=== PATIENT | female | born 1960 | race Caucasian/White ===

== ENCOUNTER → 2022-05-18 | Outpatient (CLI) | payer OTHER, SELFPAY ==
[2022-05-18 12:42] LABS: Erythrocyte Sedimentation Rate 8 mm/hr (0-30)
[2022-05-18 12:45] LABS: Absolute Lymphocyte Count 1.66 X10^3/uL (0.83-4.51); Absolute Neutrophil Count 2.3 X10^3/uL (2.0-7.7); Basophil# 0.03 X10^3/uL; Basophil% 0.6 % (0-1); Eosinophil# 0.15 X10^3/uL; Eosinophils% 3.2 % (0-5); Hematocrit 38.7 % (37-47); Hemoglobin 12.5 g/dL (12.0-15.0); Lymphocyte # 1.66 X10^3/ul (0.83-4.51); Lymphocyte % 35.3 % (19-41); Mean Corp Hgb Conc 32.3 g/dL (32-36); Monocyte% 10.6 % (0-10); NRBC Flagged by Analyzer 0 % (0-5); Neutrophil # 2.34 X10^3/uL (2.7-7.7); Neutrophil % 49.9 % (47-70); Platelet Count 253 K/mm3 (150-450); RBC Distribution Width CV 12.7 % (11.6-14.6); RBC Distribution Width SD 43.2 fl (35.1-43.9); Red Blood Count 4.16 M/mm3 (4.2-5.4); White Blood Count 4.7 K/mm3 (4.4-11.0)
[2022-05-19 10:32] LABS: ANTINUCLEAR ANTIBODIES DIRECT Negative (Negative)
[2022-05-24 14:08] LABS: Complement C3 176 mg/dL (82-167); Dilute Russell Viper Venom 37.4 sec (0.0-47.0); PTT-LA 30.3 sec (0.0-51.9); Protein C Antigen 124 % (60-150); Protein S, Free 119 % (61-136); Thrombin Time 19.1 sec (0.0-23.0); dPT Confirm Ratio 1.04 Ratio (0.00-1.34)
[2022-05-24 19:50] LABS: Anti-Cardiolipin Ab, IgA, Qn < 9 APL U/mL (0-11); Anti-Cardiolipin Ab, IgG, Qn 15 GPL U/mL (0-14); Anti-Cardiolipin Ab, IgM, Qn 13 MPL U/mL (0-12); Anti-Thrombin 3 AG, Immunol 83 % (72-124); Antithrombin 3 Function 103 % (75-135); Complement CH50 > 60 U/mL (>41); Interpretation Comment: (.); Protein C, Functional 160 % (73-180); Protein S, Funtional 103 % (63-140); Protein S, Total 125 % (60-150)
== END | disposition home or self-care (01) ==
LOC: MTLAB 09:16
PROVIDERS: PCP Family Medicine; Referring Provider Psychiatry & Neurology Neurology; Visit Provider Psychiatry & Neurology Neurology
DX: I67.9 Cerebrovascular disease, unspecified (principal)
CPT/HCPCS: 36415; 81240; 81241; 85025; 85300; 85301; 85302; 85303; 85305; 85306; 85652; 86038; 86147; 86160; 86162; 86225; 86235

== ENCOUNTER → 2022-05-28 | Outpatient (CLI) | payer OTHER, SELFPAY ==
--- NOTE | 2022-05-28 15:11 | MRI_ITS ---
STUDY: MRA OF THE HEAD WITHOUT CONTRAST REASON FOR EXAM: Female, 61 years old. CVA vs demyelinating disease vs vascular malformat TECHNIQUE: 3-D newa-hh-jluwnq (TOF) imaging was performed with MIPs. The study was performed unenhanced. COMPARISON: None. FINDINGS: Normal bilateral petrous and cavernous carotid arteries. Normal anterior cerebral arteries with trifurcation (normal variant) - three A2 segments. Normal middle cerebral arteries. Normal right posterior communicating artery (PCOM). Normal left posterior communicating artery (PCOM). Normal bilateral vertebral arteries. Normal basilar artery with a normal basilar bifurcation. The visualized bilateral superior cerebellar (SCA) arteries are normal. Normal bilateral P1, P2 and visualized P3 segments of the posterior cerebral arteries. There is no demonstrated aneurysm of the [place] of [place]. No high-grade stenosis or large vessel occlusion. MRI/MRA Head ONLY without Contrast IMPRESSION: Normal MRA of the head. Electronically Signed: Celeste Reyes MD at 22:18 EDT Reading Location ID and State: [id number] / Tel , Service support ,
--- NOTE | 2022-05-28 15:11 | MRI_ITS ---
STUDY: MRI BRAIN WITH AND WITHOUT CONTRAST REASON FOR EXAM: Female, 61 years old. CVA vs demyelinating disease vs vascular malformat TECHNIQUE: Standardized multiplanar fat and water weighted pulse sequences were obtained. IV 20ml dotarem was administered for the contrast portion of the examination. COMPARISON: None. FINDINGS: No intracranial mass, mass effect or midline shift. No enhancing lesion. No hemorrhage, territorial infarct or acute ischemia. Normal size of the ventricles and extra-axial spaces for the patient''s age. There are a limited number of small white matter hyperintensities, distributed throughout the deep white matter tracts of the cerebral hemispheres. These are nonspecific but consistent with mild chronic white matter ischemic changes. Multiple sclerosis is an additional consideration. Normal bilateral basal ganglia. Normal thalami. There is no extra-axial fluid accumulation. Normal flow voids within the major intracranial circulation suggesting patency by spin echo criteria. There is no enhancing intra-axial or extra-axial abnormality. Normal sella turcica, pituitary gland, infundibular stalk, optic chiasm and hypothalamus. Normal midbrain, kristina and medulla. Normal cerebellum. Normal basal cisterns. Normal bilateral temporal bones. Normal bilateral internal auditory canals. Mild mucosal thickening in the left maxillary sinus. Normal calvarium and skull base. Normal visualized soft tissue structures. MRI/Brain W/WO Contrast IMPRESSION: No acute findings. Mild white matter changes, nonspecific. These are most likely due to microvascular ischemia. Demyelination is less likely but not excluded. Electronically Signed: Celeste Reyes MD at 21:57 EDT Reading Location ID and State: [id number] / Tel , Service support ,
== END | disposition home or self-care (01) ==
LOC: MRI 15:01
PROVIDERS: PCP Family Medicine; Referring Provider Psychiatry & Neurology Neurology; Visit Provider Psychiatry & Neurology Neurology
DX: I67.9 Cerebrovascular disease, unspecified (principal)
CPT/HCPCS: 70544; 70553; A9575

== ENCOUNTER → 2022-06-25 | Outpatient (CLI) | payer OTHER, SELFPAY ==
--- NOTE | 2022-06-25 09:59 | CDU_ITS ---
Reason For Study: CVA Rt. Velocities/BP Lt. Velocities/BP Prox CCA 88/19 cm/sec. Prox CCA 97/23 cm/sec. Mid CCA 87/24 cm/sec. Mid CCA 80/22 cm/sec. Dist CCA 62/16 cm/sec. Dist CCA 64/23 cm/sec. Prox ICA 70/24 cm/sec. Prox ICA 74/23 cm/sec. Mid ICA 92/36 cm/sec. Mid ICA 85/29 cm/sec. Dist ICA 190/67 cm/sec. Dist ICA 153/45 cm/sec. Rt. ICA/CCA = 2.2. Lt. ICA/CCA = 1.9. Prox ECA 110/19 cm/sec. Prox ECA 91/13 cm/sec. Rt. Vert. 73/19 cm/sec. Lt. Vert. 40/16 cm/sec. Right Extracranial There is intimal thickening but no significant atherosclerotic plaque noted in the right common carotid artery. There is no significant atherosclerotic plaque noted in the right internal carotid artery. The right internal carotid artery is very tortuous. There is intimal thickening but no significant atherosclerotic plaque noted in the right external carotid artery. Antegrade flow is noted in the right vertebral artery. Left Extracranial There is intimal thickening but no significant atherosclerotic plaque noted in the left common carotid artery. There is no significant atherosclerotic plaque noted in the left internal carotid artery. The left internal carotid artery is very tortuous. There is no significant atherosclerotic plaque noted in the left external carotid artery. Antegrade flow is noted in the left vertebral artery. Procedure Carotid Duplex 54210. This is a Carotid Duplex examination using B-mode, color flow and specral Doppler. Exam performed in department. VL/Carotid Duplex Ultrasound Interpretation Summary No significant plaque of the right internal carotid artery with tortuosity note d but less than 50% stenosis in the proximal right internal carotid artery Velocities are slightly elevated in the very distal right internal carotid sajan ry but at the limits of the Doppler inspection and at a site of tortuosity making interpretation dif ficult No significant plaque at the proximal left internal carotid artery with less th an 50% stenosis. Again the left internal carotid artery is tortuous and there is velocity elevat ion within the distal left internal carotid but this is in an area of tortuosity making interpretatio n difficult. Patent and antegrade vertebrals bilaterally No previous examinations are available for comparison Ordering Physician: Tu Napier Referring Physician: Morgan Abarca Performed By: Larissa Riley RDCS, RVT
== END | disposition home or self-care (01) ==
LOC: CVS 09:57
PROVIDERS: PCP Family Medicine; Visit Provider Psychiatry & Neurology Neurology
DX: I67.9 Cerebrovascular disease, unspecified (principal)
CPT/HCPCS: 93880

== ENCOUNTER → 2022-09-24 | Outpatient (CLI) | payer OTHER, SELFPAY ==
[2022-09-24 10:40] LABS: AST(SGOT) 24 U/L (15-37); Alanine Aminotransfer ALT/SGPT 43 U/L (13-56); Albumin, Serum 3.8 g/dL (3.2-5.0); Alkaline Phosphatase 95 U/L (45-117); Bilirubin, Direct 0.18 mg/dL (0.00-0.30); Cholesterol 145 mg/dL (200); Creatinine, Serum 0.68 mg/dL (0.55-1.02); EST Glomerular Filtration Rate 94 mL/min (>60); Est Glom Filt Rate - Afr Amer 113 mL/min (>60); Globulin 3.1 g/dL (2.2-4.2); High Density Lipoprotein 49 mg/dL; Protein, Total 6.9 g/dL (6.4-8.2); Triglycerides 165 mg/dL; Very Low Density Lipoprotein 33 mg/dL (5-40)
[2022-09-26 10:29] LABS: Anti-Cardiolipin Ab, IgA, Qn < 9 APL U/mL (0-11); Anti-Cardiolipin Ab, IgG, Qn < 9 GPL U/mL (0-14); Anti-Cardiolipin Ab, IgM, Qn 11 MPL U/mL (0-12); Complement C3 175 mg/dL (82-167)
== END | disposition home or self-care (01) ==
LOC: MTLAB 08:37
PROVIDERS: PCP Family Medicine; Referring Provider Psychiatry & Neurology Neurology; Visit Provider Psychiatry & Neurology Neurology
DX: I67.9 Cerebrovascular disease, unspecified (principal)
CPT/HCPCS: 36415; 80061; 80076; 82565; 86147; 86160

== ENCOUNTER → 2022-10-19 | Outpatient (CLI) | payer OTHER, SELFPAY ==
--- NOTE | 2022-10-19 19:13 | CT_ITS ---
EXAM: CT ANGIOGRAPHY NECK WITHOUT AND WITH INTRAVENOUS CONTRAST CLINICAL INDICATION: evaluate for dstal bilateral ICA stenosis TECHNIQUE: Routine carotid CT angiography protocol was performed without and with intravenous contrast. Nascet criteria using the distal ICAs for comparison were used for evaluation of stenoses. This CT exam was performed using one or more of the following dose reduction techniques: automated exposure control, adjustment of the mA and/or kV according to patient size, and/or use of iterative reconstruction technique. This report was created using [employer] report generation technology. MIP reconstructed images were created and reviewed. CONTRAST: 100 cc of Isovue-370 IV. RADIATION DOSE: CTDIvol = 19.22 mGy, DLP = 541.74 mGy-cm. COMPARISON: None. FINDINGS: VASCULATURE: RIGHT COMMON CAROTID ARTERY: Unremarkable. No occlusion or significant stenosis. No dissection. RIGHT INTERNAL CAROTID ARTERY: Very tortuous internal carotid arteries bilaterally. Extracranial segment is patent with no occlusion or significant stenosis. No dissection. RIGHT EXTERNAL CAROTID ARTERY: Unremarkable. No occlusion. RIGHT VERTEBRAL ARTERY: Unremarkable. No occlusion or significant stenosis. No dissection. LEFT COMMON CAROTID ARTERY: Unremarkable. No occlusion or significant stenosis. No dissection. LEFT INTERNAL CAROTID ARTERY: See above. LEFT EXTERNAL CAROTID ARTERY: Unremarkable. No occlusion. LEFT VERTEBRAL ARTERY: Unremarkable. No occlusion or significant stenosis. No dissection. GREAT VESSELS OF AORTIC ARCH: Unremarkable. Normal anatomy, patent. NECK: BONES/JOINTS: Unremarkable. SOFT TISSUES: Unremarkable. LUNG APICES: Clear. CAROTID STENOSIS REFERENCE USING NASCET CRITERIA: % ICA stenosis = (1 - narrowest ICA diameter/diameter of distal cervical ICA) x 100. Mild - <50% stenosis. Moderate - 50-69% stenosis. Severe - 70-94% stenosis. Near occlusion - 95-99% stenosis. Occluded - 100% stenosis. CT/CTA Neck W/WO Contrast IMPRESSION: 1. No significant vascular stenoses identified. 2. Very tortuous internal carotid arteries bilaterally. Electronically Signed: Francesco Le MD at 2:19 EST ,
== END | disposition home or self-care (01) ==
LOC: CT 19:11
PROVIDERS: PCP Family Medicine; Visit Provider Psychiatry & Neurology Neurology
DX: I65.23 Occlusion and stenosis of bilateral carotid arteries (principal)
CPT/HCPCS: 70498; Q9967

== ENCOUNTER → 2022-10-22 | Outpatient (CLI) | payer OTHER, SELFPAY ==
--- NOTE | 2022-10-22 | CYSPIN_PTH ---
PATIENT: GAURI JHA LOC: [facility] U#:[id number] AGE/SX: 62/F ROOM: RE10/22/[address]: Dr. Tu Napier MD : 1960 BED: DIS: 10/22/2022 SPEC #: [id number] RECD: 10/25/22 10:23 STATUS: PRINCESS RELisa #: [id number] FRANKLYN: 10/22/22 00:[address]: Tu Napier DEPT: CYTOLOGY RECD BY: David Nagy ENTERED: 10/25/22 10:25 SP TYPE: CYSPIN FL OTHR DR: Dr. Morgan Abarca MD Tissues: Cerebrospinal Fluid Procedures: Pap Stain (control) Special Stain Group II Cytospin Fluid HEADER OPERATION: Lumbar puncture PRE-OP DIAGNOSIS: Multiple sclerosis TISSUE SUBMITTED: Cerebrospinal fluid for cytology DIAGNOSIS CYTOLOGY Cerebrospinal fluid for cytology (cytospin): Negative for malignant cells. See comment. AM:zofia 10/25/2022 COMMENT The specimen is virtually acellular. CYTOLOGY STUDY Slides are reviewed. CYTOLOGY GROSS Received is 1 ml of clear fluid labeled with the patient's name and and designated per the requisition as CSF. Submitted for cytology preparation. / zofia 10/25/2022 TC:5 CPT: 89227
--- NOTE | 2022-10-22 13:13 | RAD_ITS ---
PROCEDURE: Fluoroscopic guided Lumbar Puncture. DATE: 10/22/2022. CLINICAL INDICATION: Multiple sclerosis. PHYSICIAN: Polo Rodriguez M.D. MEDICATIONS: 1% lidocaine administered subcutaneously for local anesthesia. ACCESS SITE: Lower posterior back. NEEDLE: 22-gauge spinal needle. SPECIMEN: Approximately 12 mL clear]CSF fluid. FLUOROSCOPY TIME (if supplied): (0:34) minutes/seconds. No images were provided. COMPLICATIONS: None immediate. The risks, benefits, and alternatives to the procedure were explained to the patient. The specific risks of bleeding, infection, and neurovascular injury were detailed and accepted. Witnessed informed consent was obtained. The patient was placed on the fluoroscopic table in the prone position. The level for needle entry was determined and marked. The overlying skin was cleaned and prepped in the usual sterile fashion. 2% lidocaine was administered subcutaneously for local anesthesia. Under fluoroscopic guidance a 22-gauge spinal needle was advanced. The thecal sac was entered at the L2-L3 vertebral level. The inner stylet was removed. There was spontaneous flow of clear CSF fluid. The patient was placed in a reversed Trendelenburg position. Approximately 12 mL of cerebrospinal fluid was collected using gravity. The specimen was collected and submitted to the laboratory for further evaluation. The needle was withdrawn,. Hemostasis was achieved and a sterile dressing placed. The patient tolerated the procedure well without any immediate complications. The patient was placed supine with head elevated and returned to the floor in stable condition. RAD/Dx Lumbar Puncture w/IMG Guide IMPRESSION: Successful fluoroscopic-guided lumbar puncture. Electronically Signed: Polo Rodriguez MD at 14:52 EST ,
[2022-10-22 13:22] VITALS: BP 173/79; PULSE 72; RESP 16; TEMP 37.1; O2SAT 97; BMI 41.6
[2022-10-22] MEDS: Lidocaine 2% (5ml sdv) 5 ML VIAL.MPF INFILT (14:12)
[2022-10-22 14:44] LABS: Cytology, Body Fluid / CSF SEE PATHOLOGY REPORT
[2022-10-22 15:43] LABS: Glucose Spinal Fluid 67 mg/dL (40-75)
[2022-10-22 15:45] VITALS: BP 144/68; PULSE 64; RESP 14; O2SAT 95
[2022-10-22 17:19] LABS: Auto B Fluid Analyzer BKGD Ct COUNTS W/IN LIMITS (W/IN LIMITS)
[2022-10-22 17:21] LABS: Appearance CSF (character) CLEAR (Clear); CSF Color COLORLESS (Colorless); Tested Tube # 4
[2022-10-22 17:23] LABS: RBC Count, Spinal Fluid 0 /mm-3 (None seen)
[2022-10-22 17:33] LABS: White Count, CSF 0 /mm-3 (0 - 5)
[2022-10-22 18:03] LABS: Neutrophils,CSF 50 % (0 - 6)
[2022-10-22 18:04] LABS: Body Fluid QC Type(s) BF3Q; Lymphocytes,CSF 50 % (40 - 80)
[2022-10-25 15:35] LABS: Pathologist Review Reviewed
[2022-10-26 14:08] LABS: CSF Albumin 12 mg/dL (8-37); CSF IgG 0.7 mg/dL (0.0-6.7); CSF IgG Index 0.4 (0.0-0.7); IgG Serum 644 mg/dL (586-1602); IgG Synthesis Rate, CSF -2.7 mg/day (-9.9 TO +3.3); IgG/Alb Ratio, CSF 0.06 (0.00-0.25); Serum Albumin 4.7 g/dL (3.8-4.9)
[2022-10-28 10:23] LABS: Myelin Basic Protein, MBP 4.7 ng/mL (0.0-3.7)
[2022-10-28 10:23] LABS: CSF:Serum Albumin Index 3 (0-8)
== END | disposition home or self-care (01) ==
PROVIDERS: PCP Family Medicine; Referring Provider Psychiatry & Neurology Neurology; Visit Provider Psychiatry & Neurology Neurology
DX: G35 Multiple sclerosis (principal); R93.0 Abnormal findings on diagnostic imaging of skull and head, not elsewhere classified
CPT/HCPCS: 36415; 62328; 82040; 82042; 82784; 82945; 83873; 83916; 84157; 87070; 87205; 88108; 88313; 89050; 89051

== ENCOUNTER → 2023-03-30 | Outpatient (CLI) | payer OTHER, SELFPAY ==
--- NOTE | 2023-03-30 10:24 | MRI_ITS ---
EXAM: MR HEAD WITHOUT AND WITH INTRAVENOUS CONTRAST CLINICAL INDICATION: CVA; possible multiple sclerosis; ? Vascular malform TECHNIQUE: Multiplanar and multisequence MR images of the brain were obtained without and with intravenous contrast. CONTRAST: IV 22ml Clariscan COMPARISON: MRI brain with and without contrast 05/28/2022. FINDINGS: BRAIN AND EXTRA-AXIAL SPACES: Few tiny faint T2 FLAIR hyperintensity foci, in the frontal lobes, right central lobe and posterior pontine tegmentum were present previously and unchanged. These are not MS plaques. The periventricular white matter remains normal. No evidence of acute infarct. No intracranial mass or mass effect. There is preservation of the perez/white matter interface. Posterior fossa structures are unremarkable. No hydrocephalus. Basal cisterns are patent. No abnormal magnetic susceptibility foci to suspect AVM or remote intracranial bleeding. SELLA: Unremarkable. Normal sella turcica, pituitary gland, infundibular stalk, optic chiasm and hypothalamus. AUDITORY SYSTEM: Unremarkable. The internal auditory canals are patent. BONES/JOINTS: Unremarkable. No discrete lytic or blastic abnormalities. SINUSES: Unremarkable as visualized. Clear. MASTOID AIR CELLS: Unremarkable as visualized. Clear. ORBITS: Unremarkable as visualized. Both globes, extraocular muscles, optic nerves and retrobulbar fat appear unremarkable. VASCULATURE: Unremarkable as visualized. Normal flow voids in the major intracranial circulation. MRI/Brain W/WO Contrast IMPRESSION: 1. No MRI evidence of acute or subacute ischemic infarct, intracranial mass, AVM or MS plaques. 2. Few tiny faint T2 FLAIR hyperintensity foci in the frontal lobes, right central lobe and across the posterior pontine tegmentum remain nonspecific. They may be migraine-related changes. These are not MS plaques. Other possibilities include microvascular disease and vasculitis. 3. Following IV contrast administration, there are no abnormally enhancing lesions intra-axially and extra-axially. 4. No significant interval change when compared to 05/28/2022. Electronically Signed: Morales Black MD at 15:12 EDT ,
[2023-03-30 10:51] LABS: CREATININE FINGERSTICK < 0.9 mg/dL (0.55-1.02); EGFR FINGERSTICK > 60.0000 mL/min (>60)
== END | disposition home or self-care (01) ==
LOC: MRI 10:18
PROVIDERS: PCP Family Medicine; Referring Provider Psychiatry & Neurology Neurology; Visit Provider Psychiatry & Neurology Neurology
DX: I67.9 Cerebrovascular disease, unspecified (principal); H81.90 Unspecified disorder of vestibular function, unspecified ear; R93.0 Abnormal findings on diagnostic imaging of skull and head, not elsewhere classified; H53.9 Unspecified visual disturbance
CPT/HCPCS: 70553; A9575

== ENCOUNTER → 2023-04-05 | Outpatient (CLI) | payer OTHER, SELFPAY ==
--- NOTE | 2023-04-05 08:08 | CYSPIN_PTH ---
PATIENT: GAURI JHA LOC: [facility] U#:[id number] AGE/SX: 62/F ROOM: RE04/05/[address]: Dr. Tu Napier MD : 1960 BED: DIS: 04/05/2023 SPEC #: [id number] RECD: 04/05/23 11:36 STATUS: PRINCESS RELisa #: [id number] FRANKLYN: 04/05/23 08:[address]: Tu Napier DEPT: CYTOLOGY RECD BY: Steffanie Maya ENTERED: 04/05/23 11:36 SP TYPE: CYSPIN FL OTHR DR: Dr. Morgan Abarca MD Tissues: Cerebrospinal Fluid Procedures: Pap Stain (control) Special Stain Group II Cytospin Fluid HEADER OPERATION: Lumbar puncture PRE-OP DIAGNOSIS: Cerebrovascular disease TISSUE SUBMITTED: Cerebrospinal fluid for cytology DIAGNOSIS CYTOLOGY Cerebrospinal fluid for cytology (cytospin): Negative for malignant cells. Blood. See comment. AM:zofia 04/05/2023 COMMENT Clinical correlation is suggested. CYTOLOGY STUDY Slides are reviewed. CYTOLOGY GROSS Received is 3 ml of red cloudy fluid labeled with the patient's name and and designated per the requisition as CSF. Submitted for cytology preparation. / zofia 04/05/2023 TC:5 CPT: 04472
--- NOTE | 2023-04-05 08:08 | RAD_ITS ---
PROCEDURE: Fluoroscopic guided lumbar puncture. DATE OF EXAMINATION: 04/05/2023 INDICATION: Female, 62 years old. Concerns for multiple sclerosis. PHYSICIAN: Demetris Baires DO FLUOROSCOPY TIME (if supplied): 23 seconds. RADIATION DOSAGE (If Supplied By Facility): 10.54 mg. IMAGES: 1 fluoroscopic spot image was obtained from the procedure. CONSENT: The risks, benefits and alternatives to the procedure were explained to the patient. The specific risks of bleeding, infection, and neurovascular injury were detailed and accepted. Patient agreed to the procedure and signed the consent. SEDATION: None. MEDICATIONS: Approximate 5 cc of 2% lidocaine was administered subcutaneously for local anesthesia. The patient was placed on the fluoroscopic table in the prone position. The level for needle entry was determined and marked. The overlying skin was cleaned and prepped in the usual sterile fashion utilizing iodine prep. 2% lidocaine was administered subcutaneously for local anesthesia. Under fluoroscopic guidance a 22-gauge spinal needle was advanced. The thecal sac was accessed at the L4-L5 vertebral level. The inner stylet was removed. There was spontaneous but slow flow of blood tinged CSF fluid. The patient was placed in a reversed Trendelenburg position. Approximately 12 mL of cerebrospinal fluid was collected using gravity. The specimen was collected and submitted to the laboratory for further evaluation. The needle was withdrawn,. Hemostasis was achieved and a sterile dressing placed. The patient tolerated the procedure well without any immediate complications. The patient was placed supine with head elevated and monitored in the nursing bay for 1 hour. The patient was discharged home in stable condition. SPECIMEN: Approximately 12 cc of blood-tinged CSF fluid was obtained. RAD/Dx Lumbar Puncture w/IMG Guide IMPRESSION: Fluoroscopic-guided lumbar puncture as above. Electronically Signed: Demetris Baires MD at 13:07 EDT ,
[2023-04-05 08:09] LABS: Cytology, Body Fluid / CSF SEE PATHOLOGY REPORT
[2023-04-05 08:20] VITALS: BP 167/87; PULSE 70; RESP 18; TEMP 36.6; O2SAT 95; BMI 43.9
[2023-04-05] MEDS: Lidocaine 2% (5ml sdv) 5 ML VIAL.MPF INFILT (09:57)
[2023-04-05 10:55] VITALS: BP 165/85; PULSE 68; RESP 18; O2SAT 94
[2023-04-05 11:46] LABS: Body Fluid Mononuclear WBC # 0.014 10^3/uL; Body Fluid Mononuclear WBC % 63.6 %; Body Fluid Polynuclear WBC # 0.008 10^3/uL; Body Fluid Polynuclear WBC % 36.4 %; Total Cell Count CSF 0.022 10^3/uL; White Count, CSF 0.022 10^3/uL (0.000-0.005)
[2023-04-05 11:48] LABS: Appearance CSF (character) SL CLDY (Clear); Auto B Fluid Analyzer BKGD Ct COUNTS W/IN LIMITS (W/IN LIMITS); CSF Color RED (Colorless); Tested Tube # 4
[2023-04-05 11:49] LABS: Body Fluid QC Type(s) BF1Q
[2023-04-05 11:50] VITALS: BP 154/74; PULSE 67; RESP 18; O2SAT 96
[2023-04-05 12:36] LABS: Glucose Spinal Fluid 61 mg/dL (40-75)
[2023-04-06 11:09] LABS: Complement C3 177 mg/dL (82-167)
[2023-04-06 11:59] LABS: Pathologist Review Reviewed
[2023-04-13 18:07] LABS: CSF Albumin 41 mg/dL (8-37); CSF IgG 4.2 mg/dL (0.0-6.7); CSF IgG Index 0.7 (0.0-0.7); CSF:Serum Albumin Index 9 (0-8); IgG Serum 637 mg/dL (586-1602); IgG Synthesis Rate, CSF 5.6 mg/day (-9.9 TO +3.3); Myelin Basic Protein, MBP 4.3 ng/mL (0.0-3.7); Serum Albumin 4.4 g/dL (3.8-4.9)
[2023-04-21 10:23] LABS: VDRL Cerebrospinal Fluid Non Reactive (Non Rea:<1:1)
== END | disposition home or self-care (01) ==
PROVIDERS: PCP Family Medicine; Referring Provider Psychiatry & Neurology Neurology; Visit Provider Psychiatry & Neurology Neurology
DX: R93.0 Abnormal findings on diagnostic imaging of skull and head, not elsewhere classified (principal); I67.9 Cerebrovascular disease, unspecified
CPT/HCPCS: 36415; 62328; 82040; 82042; 82784; 82945; 83873; 83916; 84157; 86160; 86592; 87070; 87205; 88108; 88313; 89050; 89051

== ENCOUNTER → 2023-07-11 | Outpatient (CLI) | payer OTHER, SELFPAY ==
--- NOTE | 2023-07-11 06:48 | MRI_ITS ---
HISTORY: cervical spinal stenosis, possible multiple sclerosis. TECHNIQUE: Multiplanar and multisequence MR images of the cervical spine were obtained before and after the intravenous administration of 23 cc Clariscan. 275 images. COMPARISON: CTA 10/19/2022. FINDINGS: VERTEBRAE: Vertebral body heights maintained. Mild degenerative bone marrow endplate changes of the 3-4, C4-5, C5-6, and C6-7. VERTEBRAL ALIGNMENT: Chronic slight reversal of the cervical lordosis without significant anterior or posterior subluxation. SPINAL CANAL: Cervical cord signal and morphology within normal limits without enhancing lesion. No epidural collection or enhancing intradural extramedullary mass. SOFT TISSUES: No prevertebral fluid collection. INTERVERTEBRAL DISCS: C2-3: No significant posterior disc protrusion, central canal stenosis, or foraminal narrowing. C3-4: Mild posterior disc bulge osteophyte complex with uncovertebral and facet arthropathy resulting in mild central canal stenosis and bilateral foraminal narrowing. C4-5: Mild posterior disc bulge osteophyte complex with uncovertebral and facet arthropathy resulting in mild-moderate central canal stenosis, abutment of the ventral cord, and mild bilateral foraminal narrowing. C5-6: Mild posterior disc bulge osteophyte complex with uncovertebral and facet arthropathy resulting in moderate central canal stenosis, abutment of the ventral cord, moderate right, and mild left foraminal narrowing. C6-7: Mild posterior disc bulge osteophyte complex with uncovertebral and facet arthropathy resulting in mild central canal stenosis and bilateral foraminal narrowing. C7-T1: No significant posterior disc protrusion, central canal stenosis, or foraminal narrowing. MRI/Spine Cervical W/WO Contrast IMPRESSION: Multilevel degenerative disc disease as above. No evidence for signal abnormality or enhancing lesion in the cervical spinal cord. Electronically Signed: Nikki eL MD at 13:33 EDT ,
[2023-07-11 08:46] LABS: CREATININE FINGERSTICK 1.2 mg/dL (0.55-1.02)
== END | disposition home or self-care (01) ==
LOC: MRI 06:29
PROVIDERS: PCP Family Medicine; Referring Provider Psychiatry & Neurology Neurology; Visit Provider Psychiatry & Neurology Neurology
DX: M48.02 Spinal stenosis, cervical region (principal)
CPT/HCPCS: 72156; A9575

== ENCOUNTER → 2024-02-20 | Outpatient (CLI) | payer OTHER, SELFPAY ==
--- NOTE | 2024-02-20 07:34 | MRI_ITS ---
EXAM: MR HEAD WITHOUT AND WITH INTRAVENOUS CONTRAST CLINICAL INDICATION: vertigo; abnormal head MRI; chronic R hearing loss TECHNIQUE: Multiplanar and multisequence MR images of the brain were obtained without and with intravenous contrast. CONTRAST: IV 22ml Clariscan COMPARISON: MR Head dated 03/30/2023 FINDINGS: BRAIN AND EXTRA-AXIAL SPACES: Stable small foci of increased T2 signal intensity within the frontal lobes. No intra- or extra-axial hemorrhage. No evidence of acute infarct. No intracranial mass or mass effect. There is preservation of the perez/white matter interface. Posterior fossa structures are unremarkable. Ventricles are appropriate for age. No hydrocephalus. Basal cisterns are patent. No abnormal contrast enhancement. SELLA: Normal. Normal sella turcica, pituitary gland, infundibular stalk, optic chiasm and hypothalamus. AUDITORY SYSTEM: Normal. The internal auditory canals are patent. BONES/JOINTS: Intact calvarium. SINUSES: Unremarkable as visualized. Clear. MASTOID AIR CELLS: Unremarkable as visualized. Clear. ORBITS: Unremarkable as visualized. Both globes, extraocular muscles, optic nerves and retrobulbar fat appear unremarkable. VASCULATURE: Unremarkable as visualized. Normal flow voids in the major intracranial circulation. MRI/Brain W/WO Contrast IMPRESSION: No acute intracranial abnormality. Electronically Signed: Ciro Mitchell MD at 9:24 EDT ,
[2024-02-20 07:59] LABS: CREATININE FINGERSTICK < 1.0 mg/dL (0.55-1.02); EGFR FINGERSTICK > 60.0000 mL/min (>60)
== END | disposition home or self-care (01) ==
PROVIDERS: PCP Family Medicine; Referring Provider Psychiatry & Neurology Neurology; Visit Provider Psychiatry & Neurology Neurology
DX: R93.0 Abnormal findings on diagnostic imaging of skull and head, not elsewhere classified (principal); H91.90 Unspecified hearing loss, unspecified ear; R42 Dizziness and giddiness
CPT/HCPCS: 70553; A9575